=== PATIENT | male | born 1955 | race Caucasian/White ===

== ENCOUNTER → 2017-02-02 | Outpatient (CLI) | payer BC, OTHER ==
[~2017-02-02] MED LIST: PERC5TAB12 PO; PRED20 PO; SIMV40TA PO; SIMV5TAB3 OR; SYNT137T PO; SYNT175T PO; ULOR40TA OR; ULOR40TA PO; [UNRECOGNIZED DRUG - REMARK]
[2017-02-02 07:30] LABS: AUTOMATED NEUTROPHIL # 5.6 TH/MM3 (1.8-7.7); BASOPHIL % 0.4 % (0.0-2.0); EOSINOPHIL # 0.2 TH/MM3 (0-0.4); EOSINOPHIL % 2.1 % (0.0-4.0); HEMATOCRIT 42.7 % (39.0-51.0); HEMO FLAGS DIFF FINAL; LYMPH % 16.4 % (9.0-44.0); LYMPHOCYTE # 1.2 TH/MM3 (1.0-4.8); MEAN CORPUSCULAR HEMOGLOBIN 27.1 PG (27.0-34.0); NEUT % 74.1 % (16.0-70.0); PLATELET COUNT 201 TH/MM3 (150-450); RED BLOOD COUNT 5.21 MIL/MM3 (4.50-5.90); RED CELL DISTRIBUTION WIDTH 14.6 % (11.6-17.2); WHITE BLOOD COUNT 7.5 TH/MM3 (4.0-11.0)
[2017-02-02 07:49] LABS: ALKALINE PHOSPHATASE 70 U/L (45-117); ALT (GPT) 52 U/L (12-78); ANION GAP 8 MEQ/L (5-15); AST (GOT) 132 U/L (15-37); BICARBONATE 28.5 MEQ/L (21.0-32.0); BLOOD UREA NITROGEN 24 MG/DL (7-18); CHLORIDE 105 MEQ/L (98-107); GLOMERULAR FILTRATION RATE 53 ML/MIN (>89); GLUCOSE,FASTING 107 MG/DL (74-99); HDL CHOLESTEROL 43.5 MG/DL (40.0-60.0); LDL CHOLESTEROL 84 MG/DL (0-99); POTASSIUM 3.8 MEQ/L (3.5-5.1); SODIUM (NA) 141 MEQ/L (136-145); THYROXINE (T4) 9.3 MCG/DL (4.5-12.1); TOTAL BILIRUBIN ADULT 1.5 MG/DL (0.2-1.0); URIC ACID 4.3 MG/DL (2.6-7.2)
== END ==
LOC: CLAB 06:59
PROVIDERS: ATTEND Family Medicine
DX: I10 Essential (primary) hypertension (principal); E78.2 Mixed hyperlipidemia; E03.9 Hypothyroidism, unspecified; M10.9 Gout, unspecified
CPT/HCPCS: 36415; 80053; 80061; 84436; 84443; 84550; 85025

== ENCOUNTER 2017-03-08 12:04 | Emergency (ER) | payer BC, OTHER ==
[~2017-03-08] VITALS: Ht 190.5 cm; Wt 105.9 kg
[~2017-03-08 12:04] MED LIST changes: -PRED20 PO; -SIMV40TA PO; -SYNT175T PO; -ULOR40TA PO
[2017-03-08 12:10] VITALS: BP 142/96; PULSE 84; RESP 16; TEMP 98.3; O2SAT 95
[2017-03-08] MEDS ORDERED: SIMV40TA PO (12:17)
[2017-03-08] MEDS ORDERED: ULOR40TA PO (12:17)
[2017-03-08] MEDS ORDERED: SYNT175T PO (12:17)
[2017-03-08] MEDS ORDERED: PRED20 PO (12:43)
--- NOTE | 2017-03-08 12:43 | PD ---
HPI Chief Complaint: Skin Problem Time Seen by Provider: 12:30 Travel History International Travel<30 days: No Contact w/Intl Traveler<30days: No Traveled to known affect area: No History of Present Illness HPI 61 year old male presents emergency department for evaluation of a rash and possible poisoning is exposure. He reports 6 days ago he was doing yard work and came into contact poison lurdes. Later that evening he developed a rash on his right upper extremity which has spread consistently up the arm into his other extremities on the skin exposed areas. He reports multiple previous episodes of contact dermatitis caused by poison lurdes. He denies fevers, chills, shortness of breath or wheezing. PFSH Past Medical History Cancer: Yes (THYROID) High Cholesterol: Yes Diminished Hearing: No Hypertension: Yes Inguinal Hernia: Yes (RIGHT) Kidney Stones: Yes Radiation Therapy: Yes (15 YEARS AGO , THYROID) Thyroid Disease: Yes Tetanus Vaccination: < 5 Years Influenza Vaccination: No Past Surgical History Other Surgery: Yes (thyroid and right groin) Social History Alcohol Use: No Tobacco Use: No Substance Use: No Allergies-Medications (Allergen,Severity, Reaction): Coded Allergies: Neosporin (Verified Allergy, Severe, 03/08/17) Penicillin (Verified Allergy, Intermediate, CHILD, 03/08/17) Reported Meds & Prescriptions Reported Meds & Active Scripts Active Prednisone 20 Mg Tab 40 Mg PO DAILY Take 40 mg (2 tablets) daily for 5 days Reported Simvastatin 40 Mg Tab 40 Mg PO HS Synthroid (Levothyroxine Sodium) 175 Mcg Tab 175 Mcg PO DAILY Uloric (Febuxostat) 40 Mg Tab 1 Tab PO M,W,F Review of Systems Except as stated in HPI: all other systems reviewed are Neg Physical Exam Narrative GENERAL: Well-nourished, well-developed patient. SKIN: Focused skin assessment warm/dry. Patient has an erythematous vesicular rash on upper and lower extremities. No lymphangitis or surrounding cellulitis. Rash consistent with contact dermatitis. HEAD: Normocephalic. EYES: No scleral icterus. No injection or drainage. NECK: Supple, trachea midline. No JVD or lymphadenopathy. CARDIOVASCULAR: Regular rate and rhythm without murmurs, gallops, or rubs. RESPIRATORY: Breath sounds equal bilaterally. No accessory muscle use. GASTROINTESTINAL: Abdomen soft, non-tender, nondistended. MUSCULOSKELETAL: No cyanosis, or edema. BACK: Nontender without obvious deformity. No CVA tenderness. Data Data Last Documented VS Vital Signs Date Time Temp Pulse Resp B/P Pulse Ox O2 Delivery O2 Flow Rate FiO2 03/08/17 12:10 98.3 84 16 142/96 95 Orders Prednisone (Deltasone) (03/08/17 12:45) [facility] Medical Decision Making Medical Screen Exam Complete: Yes Emergency Medical Condition: Yes Medical Record Reviewed: Yes Differential Diagnosis Contact dermatitis, unspecified rash Narrative Course 61-year-old male presents emergency department for evaluation of suspected poison lurdes on his upper and lower extremity. He reports that 6 days ago he was doing yard work and possible came into contact poison lurdes. That same day he developed rash which has progressively spread and worsened. The rash is localized to the upper extremities where his arms were exposed. He also has a few small lesions on his lower extremities. The rash itself is consistent with contact dermatitis from poison lurdes. Patient we put on oral steroids and instructed to continue OTC Benadryl as needed. Diagnosis Primary Impression: Contact dermatitis due to poison lurdes Referrals: Primary Care Physician Patient Instructions: General Instructions, Poison Lurdes (ED) Scripts Prednisone 20 Mg Tab40 Mg PO DAILY #10 TAB Take 40 mg (2 tablets) daily for 5 days Prov:Cinthia Valdivia 03/08/17 Disposition: 01 DISCHARGE HOME Condition: Stable Cinthia Valdivia Mar 08, 2017 12:43
[2017-03-08] MEDS ORDERED: predniSONE 20 MG TAB PO ONE (12:45)
== END 2017-03-08 13:13 | disposition home or self-care (01) ==
LOC: PHEFT 12:04
DX: L25.5 Unspecified contact dermatitis due to plants, except food (principal); I10 Essential (primary) hypertension; E07.9 Disorder of thyroid, unspecified; E78.00 Pure hypercholesterolemia, unspecified; Z85.850 Personal history of malignant neoplasm of thyroid; Z87.442 Personal history of urinary calculi; W60.XXXA Contact with nonvenomous plant thorns and spines and sharp leaves, initial encounter; Y92.007 Garden or yard of unspecified non-institutional (private) residence as the place of occurrence of the external cause
CPT/HCPCS: 99283; J7512